=== PATIENT | female | born 1945 | race Caucasian/White ===

== ENCOUNTER 2017-10-02 15:51 | Inpatient (IN) | payer OTHER, MEDICAID ==
[~2017-10-02] VITALS: Ht 165.1 cm; Wt 102.8 kg
[2017-10-02] MEDS ORDERED: OXYC10 PO (16:11)
[2017-10-02] MEDS ORDERED: SULI150T PO (16:11)
[2017-10-02] MEDS ORDERED: PILOC5 PO (16:11)
[2017-10-02] MEDS ORDERED: CIP250 PO (16:11)
[2017-10-02 17:22] LABS: BASOPHILS # (AUTO) 0.07 K/uL (0.00-0.20); BASOPHILS % (AUTO) 1.3 % (0.0-2.0); EOSINOPHILS # (AUTO) 0.17 K/uL (0.00-0.70); HEMATOCRIT 43.8 % (36-46); HEMOGLOBIN 14.6 g/dL (12.0-16.0); LYMPHOCYTES # (AUTO) 0.8 K/uL (1.0-4.8); LYMPHOCYTES % (AUTO) 14.7 % (22.0-44.0); MEAN CORPUSCULAR HEMOGLOBIN 37.1 pg (26.0-34.0); MEAN CORPUSCULAR HGB CONC 33.4 G/dL (31.0-37.0); MEAN CORPUSCULAR VOLUME 111 fL (80-100); MONOCYTES # (AUTO) 0.6 K/uL (0.1-1.0); MONOCYTES % (AUTO) 11.1 % (2.0-9.0); NEUTROPHILS # (AUTO) 3.8 K/uL (1.8-7.7); NEUTROPHILS % (AUTO) 69.8 % (40.0-70.0); RED BLOOD CELL COUNT(AUTO) 3.93 MIL/uL (4.00-5.20); RED CELL DISTRIBUTION WIDTH 18.3 % (11.5-14.5)
[2017-10-02 17:34] LABS: ANION GAP 2 mmol/L (8-16); CARBON DIOXIDE 30 mmol/L (22-29); CHLORIDE 113 mmol/L (98-107); CREATININE 0.59 mg/dL (0.60-1.30); GLOMERULAR FILTR. RATE CALC > 60 mL/min (>60); GLUCOSE,RANDOM 130 mg/dL (70-110); POTASSIUM 3.3 mmol/L (3.5-5.1); SODIUM SERUM 145 mmol/L (136-145); UREA NITROGEN, BLOOD 16 mg/dL (7-18)
[2017-10-02 17:35] LABS: INR 1.2 (0.9-1.1); PROTHROMBIN TIME 12.7 SEC (9.4-11.6)
[2017-10-02 17:39] LABS: APPEARANCE,URINE CLOUDY (CLEAR); BILIRUBIN,URINE NEGATIVE (NEGATIVE); GLUCOSE, URINE (UA) NEGATIVE (NEGATIVE); KETONES,URINE NEGATIVE (NEGATIVE); LEUKOCYTE ESTERASE ,URINE TRACE (NEGATIVE); NITRATE,URINE NEGATIVE (NEGATIVE); OCCULT BLOOD,URINE LARGE (NEGATIVE); PH,URINE 7.5 (5.0-8.0); PROTEIN,URINE POS 1+ (NEGATIVE)
[2017-10-02 17:41] LABS: TROPONIN I 0.06 ng/mL (0.00-0.05)
[2017-10-02 17:42] LABS: AMPHET/METH SCREEN,URINE NEGATIVE (NEGATIVE); BARBITURATE SCREEN, URINE NEGATIVE (NEGATIVE); BENZODIAZEPINES SCREEN,URINE NEGATIVE (NEGATIVE); CANNABINOID SCREEN,URINE NEGATIVE (NEGATIVE); COCAINE SCREEN,URINE NEGATIVE (NEGATIVE); METHADONE SCREEN, URINE NEGATIVE (NEGATIVE); OPIATE SCREEN,URINE NEGATIVE (NEGATIVE)
[2017-10-02 17:44] LABS: PHENCYCLIDINE SCREEN,URINE NEGATIVE (NEGATIVE)
[2017-10-02 17:45] LABS: BACTERIA,URINE Moderate /HPF (None Seen); SQUAMOUS EPITHELIAL CELL,UR Few /LPF (None Seen)
[2017-10-02 17:54] LABS: PLATELET COUNT (AUTO) 64 K/uL (150-450)
[2017-10-02 18:02] LABS: ALANINE AMINOTRANSFERASE 60 U/L (12-78); ALBUMIN 2.3 g/dL (3.4-5.0); ALKALINE PHOSPHATASE 138 U/L (46-116); ASPARTATE AMINOTRANSFERASE 44 U/L (15-37); BILIRUBIN,TOTAL 2.6 mg/dL (0.1-1.0); CREATINE KINASE MB 3.6 ng/mL (0-5); CREATINE KINASE, TOTAL 111 U/L (26-192); TOTAL PROTEIN, SERUM 5.3 g/dL (6.4-8.2)
[2017-10-02] MEDS ORDERED: LACTULOSE 200 GM/300 ML RECTAL SOLUTION PR ONE (18:15)
[2017-10-02] MEDS ORDERED: ONDANSETRON HCL 4 MG/2 ML VIAL IVP PRN ×2 (20:00)
[2017-10-02] MEDS ORDERED: ACETAMINOPHEN 325 MG TABLET PO PRN (20:00)
[2017-10-02] MEDS ORDERED: 0.9% SODIUM CHLORIDE 10 ML SYRINGE IVP PRN ×2 (20:00)
[2017-10-02] MEDS: CIPROFLOXACIN 400 MG/D5% WATER 200 ML IV SCH (20:39)
[2017-10-02] MEDS: PANTOPRAZOLE SODIUM 40 MG/VIAL IVP SCH (20:39)
[2017-10-03] MEDS: PANTOPRAZOLE SODIUM 40 MG/VIAL IVP SCH (08:18)
[2017-10-03 09:55] VITALS: BP 143/59
[2017-10-03] MEDS ORDERED: INFLUENZA VIRUS VACCINE QVS 2017-18 (3YR+)/PF 60 MCG/0.5 ML SYRINGE IM ONE (10:30)
[2017-10-03 10:44] LABS: HEMATOCRIT 43.4 % (36-46); HEMOGLOBIN 14.9 g/dL (12.0-16.0); MEAN CORPUSCULAR HEMOGLOBIN 37.5 pg (26.0-34.0); MEAN CORPUSCULAR HGB CONC 34.4 G/dL (31.0-37.0); MEAN CORPUSCULAR VOLUME 109 fL (80-100); PLATELET COUNT (AUTO) 71 K/uL (150-450); RED BLOOD CELL COUNT(AUTO) 3.98 MIL/uL (4.00-5.20)
[2017-10-03 11:20] LABS: ALANINE AMINOTRANSFERASE 60 U/L (12-78); ALBUMIN 2.2 g/dL (3.4-5.0); ALKALINE PHOSPHATASE 104 U/L (46-116); ANION GAP 6 mmol/L (8-16); ASPARTATE AMINOTRANSFERASE 48 U/L (15-37); BILIRUBIN,TOTAL 2.8 mg/dL (0.1-1.0); CALCIUM, TOTAL 8.6 mg/dL (8.8-10.5); CARBON DIOXIDE 26 mmol/L (22-29); CHLORIDE 112 mmol/L (98-107); CREATININE 0.61 mg/dL (0.60-1.30); GLOMERULAR FILTR. RATE CALC > 60 mL/min (>60); GLUCOSE,RANDOM 112 mg/dL (70-110); POTASSIUM 3.5 mmol/L (3.5-5.1); SODIUM SERUM 144 mmol/L (136-145); TOTAL PROTEIN, SERUM 5.2 g/dL (6.4-8.2); UREA NITROGEN, BLOOD 16 mg/dL (7-18)
[2017-10-03 11:30] VITALS: BP 138/61
[2017-10-03] MEDS ORDERED: LACT30L PO (11:30)
[2017-10-03] MEDS ORDERED: GABA-531 PO (11:30)
[2017-10-03] MEDS ORDERED: SPIR50 PO (11:30)
[2017-10-03] MEDS ORDERED: FURO20 PO (11:30)
[2017-10-03] MEDS ORDERED: SODIUM CHLORIDE 0.9% 250 ML IV ONE (12:02)
[2017-10-03] MEDS: CIPROFLOXACIN 400 MG/D5% WATER 200 ML IV SCH ×2 (12:08→22:47)
[2017-10-03 14:56] LABS: BAND NEUTROPHILS % (MANUAL) 3 % (1-5); EOSINOPHILS % (MANUAL) 2 % (1-6); LYMPHOCYTES % (MANUAL) 11 % (22-44); MONOCYTES % (MANUAL) 5 % (2-9); SEGMENTED NEUTROPHILS % 79 % (40-70)
[2017-10-03 15:31] VITALS: BP 130/77
[2017-10-03] MEDS ORDERED: PILOCARPINE HCL 5 MG TABLET PO SCH (16:00)
[2017-10-03 19:15] VITALS: BP 129/58
[2017-10-03] MEDS: LACTULOSE 20 GM/30 ML SOLUTION UDCUP PO SCH (19:49)
[2017-10-03] MEDS ORDERED: LACTULOSE 20 GM/30 ML SOLUTION UDCUP PO SCH (21:00)
[2017-10-03 23:22] VITALS: BP 133/60
[2017-10-04 04:28] VITALS: BP 135/48
[2017-10-04 07:45] VITALS: BP 136/63
[2017-10-04] MEDS: LACTULOSE 20 GM/30 ML SOLUTION UDCUP PO SCH ×4 (09:13→20:52)
[2017-10-04] MEDS: PANTOPRAZOLE SODIUM 40 MG/VIAL IVP SCH (09:13)
[2017-10-04 11:08] VITALS: BP 121/58
[2017-10-04] MEDS: CIPROFLOXACIN 400 MG/D5% WATER 200 ML IV SCH (12:08)
[2017-10-04] MEDS ORDERED: RIFAX550 PO (15:08)
[2017-10-04] MEDS ORDERED: LANS15CA17 PO (15:08)
[2017-10-04] MEDS ORDERED: APRE30TA2 PO (15:08)
[2017-10-04] MEDS ORDERED: URSO300C4 PO (15:08)
[2017-10-04 16:10] VITALS: BP 129/65
[2017-10-04] MEDS ORDERED: LACTULOSE 200 GM/300 ML RECTAL SOLUTION PR ONE (17:00)
[2017-10-04] MEDS ORDERED: MORPHINE SULFATE 2 MG/ML SYRINGE IVP PRN (17:00)
[2017-10-04] MEDS: PILOCARPINE HCL 5 MG TABLET PO SCH ×2 (18:20→20:52)
[2017-10-04] MEDS ORDERED: CefTRIAXone 1 GM/DEXTROSE 50 ML IV SCH (19:00)
[2017-10-04 20:30] VITALS: BP 145/76
[2017-10-05 00:13] VITALS: BP 115/69
[2017-10-05 04:38] VITALS: BP 115/70
[2017-10-05 07:29] VITALS: BP 123/70
[2017-10-05] MEDS: LACTULOSE 20 GM/30 ML SOLUTION UDCUP PO SCH ×2 (08:21→13:33)
[2017-10-05] MEDS: PILOCARPINE HCL 5 MG TABLET PO SCH ×3 (08:21→20:13)
[2017-10-05] MEDS: PANTOPRAZOLE SODIUM 40 MG/VIAL IVP SCH (08:21)
[2017-10-05 11:29] VITALS: BP 117/70
[2017-10-05 14:12] LABS: BASOPHILS % (AUTO) 0.9 % (0.0-2.0); EOSINOPHILS % (AUTO) 6.1 % (1.0-6.0); HEMATOCRIT 43.7 % (36-46); LYMPHOCYTES # (AUTO) 1.4 K/uL (1.0-4.8); LYMPHOCYTES % (AUTO) 17.6 % (22.0-44.0); MEAN CORPUSCULAR HEMOGLOBIN 37.3 pg (26.0-34.0); MEAN CORPUSCULAR HGB CONC 34.3 G/dL (31.0-37.0); MEAN CORPUSCULAR VOLUME 109 fL (80-100); MONOCYTES # (AUTO) 0.9 K/uL (0.1-1.0); NEUTROPHILS % (AUTO) 64.4 % (40.0-70.0); PLATELET COUNT (AUTO) 66 K/uL (150-450); RED BLOOD CELL COUNT(AUTO) 4.02 MIL/uL (4.00-5.20)
[2017-10-05 14:56] LABS: ANION GAP 5 mmol/L (8-16); CALCIUM, TOTAL 8.6 mg/dL (8.8-10.5); CARBON DIOXIDE 26 mmol/L (22-29); CHLORIDE 109 mmol/L (98-107); CREATININE 0.73 mg/dL (0.60-1.30); GLOMERULAR FILTR. RATE CALC > 60 mL/min (>60); GLUCOSE,RANDOM 163 mg/dL (70-110); POTASSIUM 4.3 mmol/L (3.5-5.1); SODIUM SERUM 140 mmol/L (136-145); UREA NITROGEN, BLOOD 31 mg/dL (7-18)
[2017-10-05 15:03] LABS: ALANINE AMINOTRANSFERASE 49 U/L (12-78); ALBUMIN 1.9 g/dL (3.4-5.0); ALKALINE PHOSPHATASE 77 U/L (46-116); ASPARTATE AMINOTRANSFERASE 32 U/L (15-37); BILIRUBIN,TOTAL 2.3 mg/dL (0.1-1.0); TOTAL PROTEIN, SERUM 4.8 g/dL (6.4-8.2)
[2017-10-05] MEDS ORDERED: LACTULOSE 200 GM/300 ML RECTAL SOLUTION PR ONE (20:00)
[2017-10-05 20:04] VITALS: BP 138/63
[2017-10-05] MEDS: SULINDAC 150 MG TABLET PO SCH (20:13)
[2017-10-05] MEDS: DEXTROSE 5%-0.45% SODIUM CHL 1,000 ML IV SCH (20:14)
[2017-10-05] MEDS ORDERED: SODIUM CHLORIDE 0.9% IRRIG BTL 1,000 ML IRRIG ONE (20:54)
[2017-10-05 23:55] VITALS: BP 128/71
[2017-10-06 04:19] VITALS: BP 120/66
[2017-10-06 06:36] LABS: BASOPHILS % (AUTO) 0.3 % (0.0-2.0); EOSINOPHILS % (AUTO) 7.3 % (1.0-6.0); HEMATOCRIT 39.3 % (36-46); HEMOGLOBIN 13.3 g/dL (12.0-16.0); LYMPHOCYTES # (AUTO) 0.9 K/uL (1.0-4.8); LYMPHOCYTES % (AUTO) 16.2 % (22.0-44.0); MEAN CORPUSCULAR HEMOGLOBIN 37.2 pg (26.0-34.0); MEAN CORPUSCULAR HGB CONC 33.8 G/dL (31.0-37.0); MEAN CORPUSCULAR VOLUME 110 fL (80-100); MONOCYTES # (AUTO) 0.6 K/uL (0.1-1.0); MONOCYTES % (AUTO) 11.1 % (2.0-9.0); NEUTROPHILS # (AUTO) 3.8 K/uL (1.8-7.7); NEUTROPHILS % (AUTO) 65.1 % (40.0-70.0); PLATELET COUNT (AUTO) 58 K/uL (150-450); RED BLOOD CELL COUNT(AUTO) 3.56 MIL/uL (4.00-5.20); RED CELL DISTRIBUTION WIDTH 17.5 % (11.5-14.5)
[2017-10-06 07:17] LABS: ALANINE AMINOTRANSFERASE 43 U/L (12-78); ALBUMIN 1.7 g/dL (3.4-5.0); ALKALINE PHOSPHATASE 80 U/L (46-116); ANION GAP 3 mmol/L (8-16); ASPARTATE AMINOTRANSFERASE 30 U/L (15-37); CALCIUM, TOTAL 8.1 mg/dL (8.8-10.5); CARBON DIOXIDE 27 mmol/L (22-29); CHLORIDE 109 mmol/L (98-107); CREATININE 0.58 mg/dL (0.60-1.30); GLOMERULAR FILTR. RATE CALC > 60 mL/min (>60); GLUCOSE,RANDOM 154 mg/dL (70-110); POTASSIUM 4.2 mmol/L (3.5-5.1); SODIUM SERUM 139 mmol/L (136-145); TOTAL PROTEIN, SERUM 4.3 g/dL (6.4-8.2); UREA NITROGEN, BLOOD 29 mg/dL (7-18)
[2017-10-06 07:59] VITALS: BP 119/72
[2017-10-06] MEDS: PANTOPRAZOLE SODIUM 40 MG/VIAL IVP SCH (08:52)
[2017-10-06] MEDS: SULINDAC 150 MG TABLET PO SCH (08:52)
[2017-10-06] MEDS: PILOCARPINE HCL 5 MG TABLET PO SCH ×3 (08:52→16:59)
[2017-10-06] MEDS: DEXTROSE 5%-0.45% SODIUM CHL 1,000 ML IV SCH (08:53)
[2017-10-06 11:33] VITALS: BP 123/49
[2017-10-06 16:30] VITALS: BP 114/49
== END 2017-10-06 18:45 | disposition home or self-care (01) | DRG 441 ==
LOC: EMS 15:54 → 5N 10-03 05:30
PROVIDERS: ADMIT Internal Medicine; ATTEND Internal Medicine
PROC: 3E0234Z Introduction of Serum, Toxoid and Vaccine into Muscle, Percutaneous Approach (ICD-10-PCS; principal; 2017-10-04)
DX: K72.90 Hepatic failure, unspecified without coma (principal); E43 Unspecified severe protein-calorie malnutrition; N39.0 Urinary tract infection, site not specified; K74.60 Unspecified cirrhosis of liver; E87.6 Hypokalemia; Z23 Encounter for immunization; Z88.0 Allergy status to penicillin; Z79.899 Other long term (current) drug therapy; Z68.37 Body mass index [BMI] 37.0-37.9, adult
CPT/HCPCS: 51702; 70450; 74000; 87040; 87086; 90471; 99285; C9113; J0696; J0744; J2270; J7050